=== PATIENT | female | born 1980 | race African-American/Black ===

== ENCOUNTER 2017-07-15 23:42 | Inpatient (IN) ==
[2017-07-15] MEDS ORDERED: SODIUM CHLORIDE 0.9% 1,000 ML IV STA (23:50)
[2017-07-15 23:56] LABS: Basophils # 0.1 10*3/uL (0.0-0.2); Basophils % 0.8 % (0.0-0.8); Eosinophils % 0.2 % (0.00-10.9); Hematocrit 25.8 VOL% (35.7-47.0); Hemoglobin 8.3 GM/DL (12.0-16.0); Immature Granulocytes % 0.5 %; Immature Granulocytes Absolute 0.04 #; Lymphocytes # 1.6 10*3/uL (1.4-4.0); Lymphocytes % 19.1 % (21.3-54.2); Mean Corpuscular HGB Conc 32.2 GM/DL (32-36); Mean Corpuscular Hemoglobin 24 PG (27-34); Mean Corpuscular Volume 75.9 FL (87-102); Mean Platelet Volume 10.4 FL (9.6-12.0); Monocytes # 0.8 10*3/uL (0.11-0.8); Neutrophils # 6.1 10*3/uL (1.4-7.4); Neutrophils % 70.4 % (38.7-73.9); Platelet Count 136 T/CUMM (130-400); Red Cell Distribution Width 18.2 % (9.3-17.3); White Blood Count 8.6 T/CUMM (4-12)
[2017-07-16 00:15] LABS: Albumin 2.8 G/DL (3.4-5.0); Bilirubin,Total 0.7 MG/DL (0.2-1.0); Calcium 6.1 MG/DL (8.5-10.1); Osmolality,Calculated 268.7 MOS/KG (273-304); Total Protein 7.3 G/DL (6.4-8.3)
[2017-07-16] MEDS ORDERED: POTASSIUM CHLORIDE 20 MEQ TABLET PO STA ×2 (00:37→00:47)
[2017-07-16 01:53] LABS: Apearance,Urine Slightly Hazy (Clear); Bacteria,Urine Occasional /HPF (Few); Bilirubin,Urine Small mg/dL (Negative); Blood, Urine Small mg/dL (Negative); Glucose,Urine (UA) Negative (Negative); Hyaline Casts,Urine 41 /LPF (0-3); Ketones,Urine 20 mg/dL (Negative); Mucus,Urine Many /LPF (Occasional); Nitrite,Urine Negative (Negative); Protein,Urine 100 MG/DL; RBC,Urine 1 /HPF (0-4); Squamous Epithelial Cell,Urine Occasional /HPF (0-10); Urine Color Amber (Yellow); Urine Specific Gravity 1.023 (1.001-1.035); WBC,Urine 8 /HPF (0-6)
[2017-07-16] MEDS ORDERED: ONDANSETRON 4 MG/2 ML VIAL IV PRN (01:54)
[2017-07-16] MEDS ORDERED: PROMETHAZINE 25 MG/1 ML VIAL IM PRN (01:54)
[2017-07-16] MEDS ORDERED: ACETAMINOPHEN 325 MG TABLET PO PRN (01:54)
[2017-07-16] MEDS: MAGNESIUM SULF RIDER 4 GM in PREMIX 1 EACH IV PRN ×2 (03:10→10:20)
[2017-07-16] MEDS: amLODIPine 5 MG TABLET PO SCH ×2 (03:10→09:03)
[2017-07-16] MEDS: SODIUM CHLORIDE 0.9% 1,000 ML IV SCH ×2 (03:10→10:18)
[2017-07-16] MEDS: chlordiazePOXIDE 25 MG CAPSULE PO SCH ×6 (03:10→21:40)
[2017-07-16 06:00] LABS: Basophils # 0.1 10*3/uL (0.0-0.2); Basophils % 0.7 % (0.0-0.8); Eosinophils % 0.1 % (0.00-10.9); Hematocrit 25.6 VOL% (35.7-47.0); Hemoglobin 8.4 GM/DL (12.0-16.0); Immature Granulocytes % 0.4 %; Immature Granulocytes Absolute 0.04 #; Lymphocytes # 1.6 10*3/uL (1.4-4.0); Lymphocytes % 15.9 % (21.3-54.2); Mean Corpuscular HGB Conc 32.8 GM/DL (32-36); Mean Corpuscular Hemoglobin 24 PG (27-34); Mean Corpuscular Volume 74.4 FL (87-102); Mean Platelet Volume 11.2 FL (9.6-12.0); Monocytes # 0.5 10*3/uL (0.11-0.8); Monocytes % 5.4 % (1.7-12.7); Neutrophils # 7.6 10*3/uL (1.4-7.4); Neutrophils % 77.5 % (38.7-73.9); Platelet Count 142 T/CUMM (130-400); Red Blood Count 3.44 MC/CUMM (3.8-5.5); Red Cell Distribution Width 17.9 % (9.3-17.3); White Blood Count 9.8 T/CUMM (4-12)
[2017-07-16 06:46] LABS: Albumin 2.7 G/DL (3.4-5.0); Bilirubin,Total 1.7 MG/DL (0.2-1.0); Calcium 6.4 MG/DL (8.5-10.1); Osmolality,Calculated 268.8 MOS/KG (273-304); Total Protein 6.9 G/DL (6.4-8.3)
[2017-07-16 06:52] LABS: Folate 1.6 NG/ML (5.4-24.0); Vitamin B12 472 PG/ML (211-911)
[2017-07-16 06:54] LABS: Potassium 2.4 MMOL/L (3.5-5.1)
[2017-07-16 07:25] LABS: Sedimentation Rate-Westergren 50 MM/HR (0-20)
[2017-07-16] MEDS: POTASSIUM CHLORIDE 20 MEQ TABLET PO PRN ×3 (07:29→12:40)
[2017-07-16 08:23] LABS: Hemoglobin A1 (Alkaline) 97.8 % (96.5-98.5); Hemoglobin A2 (Alkaline) 2.2 % (1.5-3.5)
[2017-07-16] MEDS: ENOXAPARIN 40 MG/0.4 ML SYRINGE SUBCUT SCH (09:02)
[2017-07-16] MEDS: CALCIUM (CARBONATE)/VITAMIN D 600 MG-400 UNIT TABLET PO SCH (09:02)
[2017-07-16] MEDS: PANTOPRAZOLE 40 MG TABLET PO SCH (09:02)
[2017-07-16] MEDS: ALUMINUM/MAGNES/SIMETH MAX STR 30 ML UDCUP PO PRN (12:40)
[2017-07-16] MEDS: DEXT 5% NACL 0.9% KCL 40 MEQ 40 MEQ/1,000 ML BAG IV SCH (14:30)
[2017-07-16] MEDS: MULTIVITAMIN (CENTRUM) TABLET PO SCH (16:12)
[2017-07-16] MEDS: THIAMINE 200 MG/2 ML VIAL IV SCH (16:12)
[2017-07-16] MEDS: FOLIC ACID INJ 1 MG in SYRINGE 1 EACH IV SCH (16:16)
[2017-07-17] MEDS: DEXT 5% NACL 0.9% KCL 40 MEQ 40 MEQ/1,000 ML BAG IV SCH ×4 (00:20→20:49)
[2017-07-17] MEDS: ALUMINUM/MAGNES/SIMETH MAX STR 30 ML UDCUP PO PRN (01:43)
[2017-07-17] MEDS: chlordiazePOXIDE 25 MG CAPSULE PO SCH ×6 (01:47→21:18)
[2017-07-17 02:50] LABS: Basophils % 0.3 % (0.0-0.8); Eosinophils % 0.3 % (0.00-10.9); Hematocrit 26.6 VOL% (35.7-47.0); Immature Granulocytes % 0.4 %; Immature Granulocytes Absolute 0.05 #; Lymphocytes # 2.1 10*3/uL (1.4-4.0); Mean Corpuscular HGB Conc 33.8 GM/DL (32-36); Mean Corpuscular Hemoglobin 25 PG (27-34); Mean Corpuscular Volume 73.7 FL (87-102); Mean Platelet Volume 10.8 FL (9.6-12.0); Monocytes # 0.6 10*3/uL (0.11-0.8); Monocytes % 5.1 % (1.7-12.7); NRBC # 0.02 10*3/uL; Neutrophils # 8.9 10*3/uL (1.4-7.4); Neutrophils % 75.9 % (38.7-73.9); Platelet Count 133 T/CUMM (130-400); Red Blood Count 3.61 MC/CUMM (3.8-5.5); Red Cell Distribution Width 18.7 % (9.3-17.3); White Blood Count 11.7 T/CUMM (4-12)
[2017-07-17 03:09] LABS: Calcium 6.2 MG/DL (8.5-10.1); Potassium 2.6 MMOL/L (3.5-5.1)
[2017-07-17] MEDS: MAGNESIUM SULF RIDER 2 GM in PREMIX 1 EACH IV PRN (06:35)
[2017-07-17] MEDS: PANTOPRAZOLE 40 MG TABLET PO SCH (09:14)
[2017-07-17] MEDS: ENOXAPARIN 40 MG/0.4 ML SYRINGE SUBCUT SCH (09:14)
[2017-07-17] MEDS: MULTIVITAMIN (CENTRUM) TABLET PO SCH (09:15)
[2017-07-17] MEDS: amLODIPine 5 MG TABLET PO SCH (09:15)
[2017-07-17] MEDS: CALCIUM (CARBONATE)/VITAMIN D 600 MG-400 UNIT TABLET PO SCH (09:15)
[2017-07-17] MEDS: THIAMINE 200 MG/2 ML VIAL IV SCH (09:17)
[2017-07-17] MEDS: FOLIC ACID INJ 1 MG in SYRINGE 1 EACH IV SCH (10:27)
[2017-07-17] MEDS ORDERED: MAGNESIUM SULF RIDER 4 GM in PREMIX 1 EACH IV PRN (10:42)
[2017-07-17] MEDS ORDERED: MAGNESIUM SULF RIDER 2 GM in PREMIX 1 EACH IV PRN (10:42)
[2017-07-17] MEDS ORDERED: METOPROLOL SUCCINATE XL 25 MG TABLET PO ONE (14:30)
[2017-07-17] MEDS: POTASSIUM CHLORIDE 20 MEQ TABLET PO PRN ×4 (14:39→20:48)
[2017-07-18] MEDS: chlordiazePOXIDE 25 MG CAPSULE PO SCH ×5 (02:55→23:55)
[2017-07-18 03:28] LABS: Basophils % 0.3 % (0.0-0.8); Eosinophils % 0.3 % (0.00-10.9); Hematocrit 22.8 VOL% (35.7-47.0); Hemoglobin 7.4 GM/DL (12.0-16.0); Immature Granulocytes % 0.7 %; Immature Granulocytes Absolute 0.08 #; Lymphocytes # 2.3 10*3/uL (1.4-4.0); Lymphocytes % 18.9 % (21.3-54.2); Mean Corpuscular HGB Conc 32.5 GM/DL (32-36); Mean Corpuscular Hemoglobin 25 PG (27-34); Mean Corpuscular Volume 76.5 FL (87-102); Mean Platelet Volume 11.7 FL (9.6-12.0); Monocytes % 8.2 % (1.7-12.7); Neutrophils # 8.6 10*3/uL (1.4-7.4); Neutrophils % 71.6 % (38.7-73.9); Platelet Count 118 T/CUMM (130-400); Red Blood Count 2.98 MC/CUMM (3.8-5.5); Red Cell Distribution Width 18.8 % (9.3-17.3)
[2017-07-18 03:50] LABS: Anisocytosis 1+; Hypochromasia 1+; Target Cells 1+
[2017-07-18 03:52] LABS: Platelet Estimate Adequate
[2017-07-18 05:50] LABS: Calcium 6.3 MG/DL (8.5-10.1); Osmolality,Calculated 285.4 MOS/KG (273-304); Potassium 4.9 MMOL/L (3.5-5.1)
[2017-07-18] MEDS: MAGNESIUM SULF RIDER 4 GM in PREMIX 1 EACH IV PRN (06:24)
[2017-07-18] MEDS: DEXT 5% NACL 0.9% KCL 40 MEQ 40 MEQ/1,000 ML BAG IV SCH (06:31)
[2017-07-18] MEDS ORDERED: SODIUM PHOSPHATE INJ 15 MMOL in SODIUM CHLORIDE 0.9% 250 ML IV ONE (08:30)
[2017-07-18] MEDS: CALCIUM (CARBONATE)/VITAMIN D 600 MG-400 UNIT TABLET PO SCH (09:21)
[2017-07-18] MEDS: METOPROLOL SUCCINATE XL 50 MG TABLET PO SCH (09:21)
[2017-07-18] MEDS: ENOXAPARIN 40 MG/0.4 ML SYRINGE SUBCUT SCH (09:21)
[2017-07-18] MEDS: MULTIVITAMIN (CENTRUM) TABLET PO SCH (09:21)
[2017-07-18] MEDS: THIAMINE 200 MG/2 ML VIAL IV SCH (09:21)
[2017-07-18 10:00] LABS: Hematocrit 25.8 VOL% (35.7-47.0); Hemoglobin 8.3 GM/DL (12.0-16.0)
[2017-07-18] MEDS: FOLIC ACID INJ 1 MG in SYRINGE 1 EACH IV SCH (10:33)
[2017-07-18] MEDS: PANTOPRAZOLE 40 MG VIAL IV SCH ×2 (10:34→20:55)
[2017-07-18] MEDS: CALCIUM CARBONATE CHEW 500 MG TABLET PO SCH ×2 (11:21→20:55)
[2017-07-18] MEDS: LEVOFLOXACIN INJ 750 MG in PREMIX 1 EACH IV SCH (11:22)
[2017-07-18] MEDS: DEXT 5% NACL 0.9% KCL 20 MEQ 20 MEQ/1,000 ML BAG IV SCH ×2 (11:42→20:56)
[2017-07-19 05:04] LABS: Basophils % 0.2 % (0.0-0.8); Eosinophils # 0.1 10*3/uL (0.0-0.87); Eosinophils % 0.5 % (0.00-10.9); Hematocrit 23.2 VOL% (35.7-47.0); Hemoglobin 7.8 GM/DL (12.0-16.0); Immature Granulocytes % 0.7 %; Immature Granulocytes Absolute 0.09 #; Lymphocytes # 1.7 10*3/uL (1.4-4.0); Lymphocytes % 13.3 % (21.3-54.2); Mean Corpuscular HGB Conc 33.6 GM/DL (32-36); Mean Corpuscular Hemoglobin 25 PG (27-34); Mean Corpuscular Volume 74.4 FL (87-102); Mean Platelet Volume 11.3 FL (9.6-12.0); Monocytes # 1.3 10*3/uL (0.11-0.8); Monocytes % 9.9 % (1.7-12.7); Neutrophils # 9.7 10*3/uL (1.4-7.4); Neutrophils % 75.4 % (38.7-73.9); Platelet Count 145 T/CUMM (130-400); Red Blood Count 3.12 MC/CUMM (3.8-5.5); Red Cell Distribution Width 19.5 % (9.3-17.3); White Blood Count 12.9 T/CUMM (4-12)
[2017-07-19 05:50] LABS: Calcium 7.6 MG/DL (8.5-10.1); Osmolality,Calculated 269.8 MOS/KG (273-304); Potassium 3.1 MMOL/L (3.5-5.1)
[2017-07-19 05:57] LABS: Anisocytosis 1+; Hypochromasia 2+; Lymphocytes 19 % (20-55); Microcytosis 1+; Segmented Neutrophils 70 % (50-85); Target Cells 1+; Total Cells Counted 100
[2017-07-19 05:58] LABS: Platelet Estimate Adequate; Polychromasia Slight; Tear Drop Cells Slight
[2017-07-19] MEDS: DEXT 5% NACL 0.9% KCL 20 MEQ 20 MEQ/1,000 ML BAG IV SCH ×3 (06:15→21:06)
[2017-07-19] MEDS: chlordiazePOXIDE 25 MG CAPSULE PO SCH ×3 (06:35→17:18)
[2017-07-19] MEDS: POTASSIUM CHLORIDE 20 MEQ TABLET PO PRN ×4 (06:47→17:18)
[2017-07-19] MEDS: THIAMINE 200 MG/2 ML VIAL IV SCH (09:10)
[2017-07-19] MEDS: ENOXAPARIN 40 MG/0.4 ML SYRINGE SUBCUT SCH (09:10)
[2017-07-19] MEDS: CALCIUM CARBONATE CHEW 500 MG TABLET PO SCH (09:10)
[2017-07-19] MEDS: CALCIUM (CARBONATE)/VITAMIN D 600 MG-400 UNIT TABLET PO SCH (09:10)
[2017-07-19] MEDS: MULTIVITAMIN (CENTRUM) TABLET PO SCH (09:10)
[2017-07-19] MEDS: PANTOPRAZOLE 40 MG VIAL IV SCH ×2 (09:11→21:06)
[2017-07-19] MEDS: METOPROLOL SUCCINATE XL 50 MG TABLET PO SCH (09:12)
[2017-07-19] MEDS: FOLIC ACID INJ 1 MG in SYRINGE 1 EACH IV SCH (11:24)
[2017-07-19] MEDS: LEVOFLOXACIN INJ 750 MG in PREMIX 1 EACH IV SCH (11:25)
[2017-07-19] MEDS ORDERED: SODIUM PHOSPHATE INJ 15 MMOL in SODIUM CHLORIDE 0.9% 250 ML IV ONE (11:31)
[2017-07-19] MEDS ORDERED: ERGOCALCIFEROL 50,000 UNIT CAPSULE PO SCH (12:00)
[2017-07-20] MEDS: chlordiazePOXIDE 25 MG CAPSULE PO SCH ×2 (00:35→05:47)
[2017-07-20] MEDS: DEXT 5% NACL 0.9% KCL 20 MEQ 20 MEQ/1,000 ML BAG IV SCH (00:40)
[2017-07-20 04:02] LABS: Basophils % 0.2 % (0.0-0.8); Eosinophils # 0.1 10*3/uL (0.0-0.87); Eosinophils % 0.6 % (0.00-10.9); Hematocrit 23.5 VOL% (35.7-47.0); Hemoglobin 7.9 GM/DL (12.0-16.0); Immature Granulocytes % 0.6 %; Immature Granulocytes Absolute 0.08 #; Lymphocytes # 2.2 10*3/uL (1.4-4.0); Lymphocytes % 17.4 % (21.3-54.2); Mean Corpuscular HGB Conc 33.6 GM/DL (32-36); Mean Corpuscular Hemoglobin 25 PG (27-34); Mean Corpuscular Volume 74.8 FL (87-102); Mean Platelet Volume 11.2 FL (9.6-12.0); Monocytes # 1.8 10*3/uL (0.11-0.8); Monocytes % 14.2 % (1.7-12.7); Neutrophils # 8.4 10*3/uL (1.4-7.4); Platelet Count 162 T/CUMM (130-400); Red Blood Count 3.14 MC/CUMM (3.8-5.5); Red Cell Distribution Width 20.1 % (9.3-17.3); White Blood Count 12.5 T/CUMM (4-12)
[2017-07-20 04:29] LABS: Calcium 8.4 MG/DL (8.5-10.1); Osmolality,Calculated 271.7 MOS/KG (273-304); Potassium 4.1 MMOL/L (3.5-5.1)
[2017-07-20] MEDS: MAGNESIUM SULF RIDER 2 GM in PREMIX 1 EACH IV PRN (06:22)
[2017-07-20 08:18] VITALS: BP 157/99
[2017-07-20] MEDS: CALCIUM (CARBONATE)/VITAMIN D 600 MG-400 UNIT TABLET PO SCH (10:06)
[2017-07-20] MEDS: METOPROLOL SUCCINATE XL 50 MG TABLET PO SCH (10:06)
[2017-07-20] MEDS: MULTIVITAMIN (CENTRUM) TABLET PO SCH (10:06)
[2017-07-20] MEDS: FOLIC ACID INJ 1 MG in SYRINGE 1 EACH IV SCH (10:24)
[2017-07-20] MEDS: ENOXAPARIN 40 MG/0.4 ML SYRINGE SUBCUT SCH (10:25)
[2017-07-20] MEDS: THIAMINE 200 MG/2 ML VIAL IV SCH (10:25)
[2017-07-20] MEDS: PANTOPRAZOLE 40 MG VIAL IV SCH (10:25)
== END 2017-07-20 10:47 | disposition home or self-care (01) | DRG 775 ==
LOC: EDBD → EDUNIT# → N.ED 23:42 → N.EDINP 07-16 01:14 → SUATTDRO 07-16 01:14 → N.TELEN 07-16 01:56
PROVIDERS: ADMIT Internal Medicine; ATTEND Internal Medicine Geriatric Medicine

== ENCOUNTER 2018-11-23 11:13 | Inpatient (IN) ==
[2018-11-23] MEDS ORDERED: ONDANSETRON 4 MG/2 ML VIAL IV STA (14:25)
[2018-11-23] MEDS ORDERED: SODIUM CHLORIDE 0.9% 1,000 ML IV STA (14:25)
[2018-11-23 14:45] LABS: Albumin 3.1 G/DL (3.4-5.0); Bilirubin,Total 0.9 MG/DL (0.2-1.0); Calcium 8.4 MG/DL (8.5-10.1); Osmolality,Calculated 269.8 MOS/KG (273-304); Total Protein 8.4 G/DL (6.4-8.3)
[2018-11-23 15:00] LABS: Basophils # 0.1 10*3/uL (0.0-0.2); Basophils % 0.5 % (0.0-0.8); Eosinophils % 0.2 % (0.00-10.9); Hematocrit 43.2 VOL% (35.7-47.0); Hemoglobin 14.6 GM/DL (12.0-16.0); Immature Granulocytes % 0.9 %; Immature Granulocytes Absolute 0.13 #; Lymphocytes # 2.4 10*3/uL (1.4-4.0); Mean Corpuscular HGB Conc 33.8 GM/DL (32-36); Mean Corpuscular Volume 93.3 FL (87-102); Mean Platelet Volume 11.5 FL (9.6-12.0); Monocytes % 6.9 % (1.7-12.7); Neutrophils % 75.5 % (38.7-73.9); Platelet Count 352 T/CUMM (130-400); Red Blood Count 4.63 MC/CUMM (3.8-5.5); Red Cell Distribution Width 13.4 % (9.3-17.3); White Blood Count 15.2 T/CUMM (4-12)
[2018-11-23] MEDS ORDERED: POTASSIUM CHLORIDE INJ 40 MEQ in DEXTROSE 5% 1,000 ML IV SCH (15:00)
[2018-11-23 15:13] LABS: Apearance,Urine CLOUDY (Clear); Bacteria,Urine Occasional /HPF (Few); Blood, Urine Small mg/dL (Negative); Glucose,Urine (UA) Negative (Negative); Hyaline Casts,Urine 144 /LPF (0-3); Ketones,Urine 5 mg/dL (Negative); Mucus,Urine Many /LPF (Occasional); Nitrite,Urine Positive (Negative); Protein,Urine 100 MG/DL; RBC,Urine 7 /HPF (0-4); Squamous Epithelial Cell,Urine Occasional /HPF (0-10); Urine Color Amber (Yellow); Urine Specific Gravity 1.031 (1.001-1.035); WBC,Urine 56 /HPF (0-6)
[2018-11-23 15:14] LABS: Bilirubin,Urine Moderate mg/dL (Negative)
[2018-11-23 15:25] LABS: Barbiturates Screen,Urine Negative (Negative); Benzodiazepines Screen,Urine Negative (Negative); Cannabinoid Screen,Urine Negative (Negative); Opiate Screen,Urine Positive (Negative); Phencyclidine Screen,Urine Negative (Negative)
[2018-11-23] MEDS ORDERED: ONDANSETRON 4 MG/2 ML VIAL IV PRN (16:55)
[2018-11-23] MEDS ORDERED: MAGNESIUM SULF RIDER 2 GM in PREMIX 1 EACH IV PRN (17:26)
[2018-11-23] MEDS ORDERED: MAGNESIUM SULF RIDER 4 GM in PREMIX 1 EACH IV PRN (17:26)
[2018-11-23] MEDS: POTASSIUM CHLORIDE INJ 40 MEQ in SODIUM CHLORIDE 0.9% 500 ML IV SCH (18:36)
[2018-11-23] MEDS: cefTRIAXone 1,000 MG in SYRINGE 1 EACH IV SCH (18:36)
[2018-11-23] MEDS: LACTATED RINGERS 1,000 ML IV SCH (18:37)
[2018-11-24] MEDS: POTASSIUM CHLORIDE INJ 40 MEQ in SODIUM CHLORIDE 0.9% 500 ML IV SCH (02:20)
[2018-11-24] MEDS: LACTATED RINGERS 1,000 ML IV SCH ×3 (02:21→16:35)
[2018-11-24 05:56] LABS: Basophils # 0.1 10*3/uL (0.0-0.2); Basophils % 0.6 % (0.0-0.8); Eosinophils # 0.1 10*3/uL (0.0-0.87); Eosinophils % 0.5 % (0.00-10.9); Hematocrit 34.3 VOL% (35.7-47.0); Hemoglobin 11.6 GM/DL (12.0-16.0); Immature Granulocytes % 0.9 %; Immature Granulocytes Absolute 0.14 #; Lymphocytes % 18.6 % (21.3-54.2); Mean Corpuscular HGB Conc 33.8 GM/DL (32-36); Mean Corpuscular Volume 93.5 FL (87-102); Mean Platelet Volume 11.3 FL (9.6-12.0); Monocytes % 5.8 % (1.7-12.7); Neutrophils % 73.6 % (38.7-73.9); Platelet Count 323 T/CUMM (130-400); Red Blood Count 3.67 MC/CUMM (3.8-5.5); Red Cell Distribution Width 13.6 % (9.3-17.3); White Blood Count 16.3 T/CUMM (4-12)
[2018-11-24 06:23] LABS: Osmolality,Calculated 274.4 MOS/KG (273-304)
[2018-11-24] MEDS: POTASSIUM CHLORIDE 20 MEQ/15 ML UDCUP PO SCH ×3 (09:11→13:52)
[2018-11-24] MEDS: CALCIUM CARBONATE CHEW 500 MG TABLET PO PRN ×3 (11:51→19:50)
[2018-11-24] MEDS: cefTRIAXone 1,000 MG in SYRINGE 1 EACH IV SCH ×2 (16:29→17:11)
[2018-11-24 17:29] LABS: Calcium 7.2 MG/DL (8.5-10.1); Osmolality,Calculated 276.3 MOS/KG (273-304)
[2018-11-24] MEDS ORDERED: POTASSIUM CHLORIDE 20 MEQ/15 ML UDCUP PO PRN (17:45)
[2018-11-24] MEDS: POTASSIUM CHLORIDE RIDER 10 MEQ in PREMIX 1 EACH IV PRN ×3 (19:50→22:51)
[2018-11-25] MEDS: CALCIUM CARBONATE CHEW 500 MG TABLET PO PRN ×2 (00:28→08:30)
[2018-11-25] MEDS: POTASSIUM CHLORIDE RIDER 10 MEQ in PREMIX 1 EACH IV PRN ×3 (00:28→02:41)
[2018-11-25] MEDS: LACTATED RINGERS 1,000 ML IV SCH ×3 (00:29→16:08)
[2018-11-25] MEDS: POTASSIUM CHLORIDE 20 MEQ TABLET PO PRN ×2 (06:29→08:30)
[2018-11-25] MEDS ORDERED: FAMOTIDINE 20 MG TABLET PO SCH (09:30)
[2018-11-25] MEDS: POTASSIUM CHLORIDE 20 MEQ TABLET PO SCH ×5 (10:03→23:14)
[2018-11-25] MEDS: PANTOPRAZOLE 40 MG TABLET PO SCH (16:56)
[2018-11-25] MEDS: cefTRIAXone 1,000 MG in SYRINGE 1 EACH IV SCH ×2 (16:56→17:34)
[2018-11-26] MEDS: POTASSIUM CHLORIDE 20 MEQ TABLET PO SCH ×3 (01:48→12:02)
[2018-11-26] MEDS: LACTATED RINGERS 1,000 ML IV SCH (03:31)
[2018-11-26 07:24] LABS: Blood Urea Nitrogen < 1 MG/DL (7-18); Calcium 8.6 MG/DL (8.5-10.1); Estimated Glom Filtration Rate 164 ML/MIN; Glucose 88 MG/DL (74-106); Osmolality,Calculated 281.2 MOS/KG (273-304)
[2018-11-26] MEDS: PANTOPRAZOLE 40 MG TABLET PO SCH (10:01)
[2018-11-26 16:24] VITALS: BP 144/99
== END 2018-11-26 12:16 | disposition home or self-care (01) | DRG 425 ==
LOC: N.ED 11:13 → INTOOBSV 15:46 → N.EDINP 15:46 → OBSVTOIN 15:46 → N.5E 16:58
PROVIDERS: ADMIT Internal Medicine Geriatric Medicine; ATTEND Internal Medicine Geriatric Medicine

== ENCOUNTER 2021-08-27 16:11 | Inpatient (IN) ==
[2021-08-27] MEDS ORDERED: SODIUM CHLORIDE 0.9% 1,000 ML IV STA (16:59)
[2021-08-27] MEDS ORDERED: THIAMINE INJ 100 MG, FOLIC ACID INJ 1 MG, MAGNESIUM SULF INJ 2 GM, MULTIVITAMIN INJ 10 ... IV STA ×2 (16:59→17:59)
[2021-08-27] MEDS ORDERED: ONDANSETRON 4 MG/2 ML VIAL IV STA (17:01)
[2021-08-27] MEDS ORDERED: KETOROLAC 30 MG/1 ML VIAL IV STA (17:09)
[2021-08-27 17:32] LABS: Basophils # 0.1 10*3/uL (0.0-0.2); Basophils % 0.4 % (0.0-0.8); Eosinophils # 0.1 10*3/uL (0.0-0.87); Eosinophils % 0.3 % (0.00-10.9); Hematocrit 35.3 VOL% (35.7-47.0); Hemoglobin 11.8 GM/DL (12.0-16.0); Immature Granulocytes % 0.5 %; Immature Granulocytes Absolute 0.08 #; Lymphocytes # 2.6 10*3/uL (1.4-4.0); Lymphocytes % 14.6 % (21.3-54.2); Mean Corpuscular HGB Conc 33.4 GM/DL (32-36); Mean Corpuscular Volume 95.4 FL (87-102); Mean Platelet Volume 10.5 FL (9.6-12.0); Monocytes # 1.5 10*3/uL (0.11-0.8); Monocytes % 8.4 % (1.7-12.7); Neutrophils % 75.8 % (38.7-73.9); Platelet Count 245 T/CUMM (130-400); Red Cell Distribution Width 13.2 % (9.3-17.3); White Blood Count 17.8 T/CUMM (4-12)
[2021-08-27 17:40] LABS: Bacteria,Urine Occasional /HPF (Few); Mucus,Urine Moderate /LPF (Occasional); RBC,Urine 12 /HPF (0-4); Squamous Epithelial Cell,Urine Moderate /HPF (0-10)
[2021-08-27 17:44] LABS: Urine Appearance Clear (Clear); Urine Color Yellow (Yellow); Urine pH 5.5 (4.5-8.0)
[2021-08-27 17:45] LABS: Bilirubin,Urine Moderate mg/dL (Negative); Blood, Urine Negative (Negative); Glucose,Urine (UA) 100 mg/dL (Negative); Ketones,Urine 15 mg/dL (Negative); Nitrite,Urine Negative (Negative); Protein,Urine 30 mg/dL (Negative); Urine Specific Gravity > 1.030 (1.001-1.035)
[2021-08-27 17:45] LABS: Alanine Aminotransferase 24 U/L (13-56); Albumin 2.7 G/DL (3.4-5.0); Alkaline Phosphatase 137 U/L (45-117); Aspartate Amino Transferase 95 U/L (0-37); Blood Urea Nitrogen 3 MG/DL (7-18); Calcium 8.7 MG/DL (8.5-10.1); Carbon Dioxide 34 MMOL/L (21-32); Chloride 91 MMOL/L (98-107); Glucose 102 MG/DL (74-106); Osmolality,Calculated 264.2 MOS/KG (273-304); Sodium 134 MMOL/L (136-145); Total Protein 7.7 G/DL (6.4-8.2)
[2021-08-27 17:59] LABS: Folate 5.06 NG/ML (5.38-24.0)
[2021-08-27] MEDS ORDERED: POTASSIUM CHLORIDE 20 MEQ TABLET PO ONE (18:01)
[2021-08-27] MEDS ORDERED: POTASSIUM CHLORIDE 20 MEQ TABLET PO STA (18:01)
[2021-08-27 18:04] LABS: Barbiturates Screen,Urine Negative (Negative); Benzodiazepines Screen,Urine Negative (Negative); Cannabinoid Screen,Urine Negative (Negative); Opiate Screen,Urine Negative (Negative); Phencyclidine Screen,Urine Negative (Negative)
[2021-08-27] MEDS ORDERED: PROMETHAZINE 25 MG/1 ML VIAL IV PRN (20:08)
[2021-08-27] MEDS ORDERED: GLUCAGON 1 MG VIAL IM PRN (20:08)
[2021-08-27] MEDS ORDERED: ACETAMINOPHEN 325 MG TABLET PO PRN (20:08)
[2021-08-27] MEDS ORDERED: ONDANSETRON 4 MG/2 ML VIAL IV PRN (20:08)
[2021-08-27] MEDS ORDERED: hydrALAZINE 20 MG/1 ML VIAL IV PRN (20:08)
[2021-08-27] MEDS ORDERED: MAGNESIUM SULF RIDER 4 GM/100 ML PREMIX IV PRN (20:21)
[2021-08-27] MEDS ORDERED: MAGNESIUM SULF RIDER 2 GM/50 ML PREMIX IV PRN (20:21)
[2021-08-27] MEDS ORDERED: DEXTROSE 10% 250 ML BAG IV PRN (20:31)
[2021-08-27] MEDS ORDERED: POTASSIUM CHLORIDE INJ 40 MEQ in SODIUM CHLORIDE 0.9% 1,000 ML IV SCH (21:30)
[2021-08-27] MEDS: THIAMINE 100 MG TABLET PO SCH (22:19)
[2021-08-27] MEDS: POTASSIUM CHLORIDE 20 MEQ TABLET PO SCH (22:19)
[2021-08-28] MEDS: POTASSIUM CHLORIDE 20 MEQ TABLET PO SCH ×2 (02:50→06:20)
[2021-08-28] MEDS: SODIUM CHLOR 0.9% KCL 40 MEQ 40 MEQ/1,000 ML BAG IV SCH ×3 (03:15→20:43)
[2021-08-28 04:52] LABS: Basophils # 0.1 10*3/uL (0.0-0.2); Basophils % 0.4 % (0.0-0.8); Eosinophils # 0.1 10*3/uL (0.0-0.87); Eosinophils % 0.8 % (0.00-10.9); Hematocrit 32.4 VOL% (35.7-47.0); Hemoglobin 10.6 GM/DL (12.0-16.0); Immature Granulocytes % 0.8 %; Immature Granulocytes Absolute 0.14 #; Lymphocytes # 3.7 10*3/uL (1.4-4.0); Lymphocytes % 20.2 % (21.3-54.2); Mean Corpuscular HGB Conc 32.7 GM/DL (32-36); Mean Corpuscular Volume 95.3 FL (87-102); Mean Platelet Volume 11.1 FL (9.6-12.0); Monocytes # 1.6 10*3/uL (0.11-0.8); Monocytes % 8.7 % (1.7-12.7); Neutrophils % 69.1 % (38.7-73.9); Platelet Count 215 T/CUMM (130-400); Red Cell Distribution Width 13.2 % (9.3-17.3); White Blood Count 18.3 T/CUMM (4-12)
[2021-08-28 05:18] LABS: Albumin 2.4 G/DL (3.4-5.0); Bilirubin,Total 0.9 MG/DL (0.20-1.00); Osmolality,Calculated 274.4 MOS/KG (273-304); Potassium 2.7 MMOL/L (3.5-5.1); Total Protein 6.6 G/DL (6.4-8.2)
[2021-08-28] MEDS ORDERED: POTASSIUM CHLORIDE 20 MEQ TABLET PO ONE (09:03)
[2021-08-28] MEDS: THIAMINE 100 MG TABLET PO SCH ×2 (09:23→20:43)
[2021-08-28] MEDS: amLODIPine 5 MG TABLET PO SCH (09:23)
[2021-08-28] MEDS: PANTOPRAZOLE 40 MG TABLET PO SCH (09:23)
[2021-08-28] MEDS: FOLIC ACID 1 MG TABLET PO SCH (09:23)
[2021-08-28] MEDS: ENOXAPARIN 40 MG/0.4 ML SYRINGE SUBCUT SCH (09:23)
[2021-08-28] MEDS ORDERED: BISACODYL 10 MG SUPP RECTAL PRN (13:44)
[2021-08-28] MEDS ORDERED: BISACODYL 10 MG SUPP RECTAL ONE (13:44)
[2021-08-29] MEDS: SODIUM CHLOR 0.9% KCL 40 MEQ 40 MEQ/1,000 ML BAG IV SCH ×3 (02:37→19:13)
[2021-08-29 09:09] LABS: Basophils # 0.1 10*3/uL (0.0-0.2); Basophils % 0.5 % (0.0-0.8); Eosinophils # 0.2 10*3/uL (0.0-0.87); Eosinophils % 1.3 % (0.00-10.9); Hematocrit 34.5 VOL% (35.7-47.0); Hemoglobin 11.3 GM/DL (12.0-16.0); Immature Granulocytes % 0.7 %; Lymphocytes # 3.3 10*3/uL (1.4-4.0); Lymphocytes % 21.5 % (21.3-54.2); Mean Corpuscular HGB Conc 32.8 GM/DL (32-36); Mean Corpuscular Volume 96.6 FL (87-102); Mean Platelet Volume 10.1 FL (9.6-12.0); Monocytes # 1.1 10*3/uL (0.11-0.8); Platelet Count 233 T/CUMM (130-400); Red Blood Count 3.57 MC/CUMM (3.8-5.5); Red Cell Distribution Width 13.8 % (9.3-17.3); White Blood Count 15.2 T/CUMM (4-12)
[2021-08-29] MEDS: FOLIC ACID 1 MG TABLET PO SCH (09:23)
[2021-08-29] MEDS: PANTOPRAZOLE 40 MG TABLET PO SCH (09:24)
[2021-08-29] MEDS: amLODIPine 5 MG TABLET PO SCH (09:24)
[2021-08-29] MEDS: THIAMINE 100 MG TABLET PO SCH ×2 (09:24→22:02)
[2021-08-29] MEDS: ENOXAPARIN 40 MG/0.4 ML SYRINGE SUBCUT SCH (09:24)
[2021-08-29 09:28] LABS: Calcium 7.9 MG/DL (8.5-10.1); Eosinophils 1 % (0-10); Hypochromia Slight; Lymphocytes 26 % (20-55); Osmolality,Calculated 278.1 MOS/KG (273-304); Potassium 3.2 MMOL/L (3.5-5.1); Total Cells Counted 100
[2021-08-29 09:29] LABS: Macrocytosis Slight; Platelet Estimate Normal
[2021-08-29] MEDS ORDERED: cefTRIAXone 2,000 MG in SODIUM CHLORIDE 0.9% 100 ML IV SCH (17:00)
[2021-08-29] MEDS ORDERED: MAGNESIUM HYDROXIDE SUSP 30 ML UDCUP PO ONE (17:00)
[2021-08-29] MEDS: DOCUSATE SODIUM 100 MG CAPSULE PO SCH (22:02)
[2021-08-30] MEDS: SODIUM CHLOR 0.9% KCL 40 MEQ 40 MEQ/1,000 ML BAG IV SCH ×2 (03:50→10:53)
[2021-08-30 05:42] LABS: Basophils # 0.1 10*3/uL (0.0-0.2); Basophils % 0.4 % (0.0-0.8); Eosinophils # 0.3 10*3/uL (0.0-0.87); Eosinophils % 1.7 % (0.00-10.9); Hematocrit 30.4 VOL% (35.7-47.0); Hemoglobin 9.8 GM/DL (12.0-16.0); Immature Granulocytes % 0.6 %; Lymphocytes # 3.2 10*3/uL (1.4-4.0); Lymphocytes % 18.9 % (21.3-54.2); Mean Corpuscular HGB Conc 32.2 GM/DL (32-36); Mean Corpuscular Volume 98.7 FL (87-102); Mean Platelet Volume 10.9 FL (9.6-12.0); Monocytes # 1.4 10*3/uL (0.11-0.8); Monocytes % 8.3 % (1.7-12.7); Neutrophils % 70.1 % (38.7-73.9); Platelet Count 230 T/CUMM (130-400); Red Blood Count 3.08 MC/CUMM (3.8-5.5); White Blood Count 16.9 T/CUMM (4-12)
[2021-08-30 06:01] LABS: Osmolality,Calculated 277.1 MOS/KG (273-304); Potassium 3.5 MMOL/L (3.5-5.1)
[2021-08-30] MEDS ORDERED: POLYETHYLENE GLYCOL POWDER 17 GM PACK PO SCH (09:00)
[2021-08-30] MEDS ORDERED: POLYCARBOPHIL 625 MG TABLET PO SCH (09:00)
[2021-08-30] MEDS ORDERED: MAGNESIUM CHLORIDE 64 MG TABLET PO SCH ×2 (09:00)
[2021-08-30] MEDS ORDERED: POTASSIUM CHLORIDE 20 MEQ TABLET PO SCH (09:00)
[2021-08-30] MEDS: THIAMINE 100 MG TABLET PO SCH (10:51)
[2021-08-30] MEDS: DOCUSATE SODIUM 100 MG CAPSULE PO SCH (10:51)
[2021-08-30] MEDS: FOLIC ACID 1 MG TABLET PO SCH (10:52)
[2021-08-30] MEDS: amLODIPine 5 MG TABLET PO SCH (10:52)
[2021-08-30] MEDS: PANTOPRAZOLE 40 MG TABLET PO SCH (10:52)
[2021-08-30] MEDS: ENOXAPARIN 40 MG/0.4 ML SYRINGE SUBCUT SCH (10:53)
[2021-08-30 17:02] VITALS: BP 145/78
== END 2021-08-30 18:22 | disposition home or self-care (01) | DRG 425 ==
LOC: N.ED 16:11 → SUATTDRO 20:08 → N.TELES 20:08
PROVIDERS: ADMIT Hospitalist; ATTEND Family Medicine